=== PATIENT | female | born 1980 | race Caucasian/White ===

== ENCOUNTER 2016-12-21 16:18 | Inpatient (IN) | payer MEDICAID ==
[~2016-12-21] VITALS: Ht 160 cm; Wt 86.4 kg
[2017-01-16] VITALS (66 sets, daily range): BP systolic 94–151; BP diastolic 54–106; PULSE 67–110; TEMP 98–98.6
[2017-01-16 06:40] LABS: BASO % 0.3 % (0.0-2.0); EOS # 0.1 (0.0-0.7); GRAN % 70.4 % (42.2-75.2); LYMPH # 1.3 (1.2-3.4); LYMPH % 22.6 % (20.0-51.0); MEAN CELL VOLUME 83 fl (80.0-100.0); MEAN CORPUSCULAR HGB CONC 32 g/dl (33.0-37.0); MEAN PLATELET VOLUME 10.2 fl (7.4-10.4); MONO # 0.3 (0.1-0.6); MONO % 5.2 % (1.7-9.3); PLATELET COUNT 222 K/mm3 (130-400); RED BLOOD COUNT 3.55 M/mm3 (4.10-5.30); REDCELL DISTRIBUTION WIDTH-CV 14.4 % (11.5-14.5); WHITE BLOOD COUNT 5.7 K/mm3 (4.8-10.8)
[2017-01-16 06:43] LABS: HEMATOCRIT 29.5 % (37.0-47.0); HEMOGLOBIN 9.5 g/dl (12.5-16.0); MEAN CORPUSCULAR HEMOGLOBIN 27 pg (27.0-31.0)
[2017-01-16] MEDS ORDERED: PERCOCET 325 MG1 TA2 PO (07:35)
[2017-01-16] MEDS ORDERED: MOTRIN 800800 MG/TAB PO (07:35)
[2017-01-17] VITALS (7 sets, daily range): BP systolic 119–128; BP diastolic 65–76; PULSE 81–103; TEMP 98.1–98.7
[2017-01-18 07:00] VITALS: BP 131/87; PULSE 89; TEMP 98.1
== END 2017-01-18 12:45 | disposition home or self-care (01) | DRG 775 ==
LOC: OB 01-16 05:29 → LDR 01-16 16:00 → OB 01-17 01:30 → EDSTATUS 02-04 06:52 → LDRO 02-04 16:17
PROVIDERS: Obstetrics & Gynecology
PROC: 10E0XZZ Delivery of Products of Conception, External Approach (ICD-10-PCS; principal; 2017-01-16)
PROC: 0HQ9XZZ Repair Perineum Skin, External Approach (ICD-10-PCS; 2017-01-16)
DX: O41.03X0 Oligohydramnios, third trimester, not applicable or unspecified (principal); O76 Abnormality in fetal heart rate and rhythm complicating labor and delivery; O32.0XX0 Maternal care for unstable lie, not applicable or unspecified; O34.13 Maternal care for benign tumor of corpus uteri, third trimester; D25.9 Leiomyoma of uterus, unspecified; O70.0 First degree perineal laceration during delivery; Z3A.37 37 weeks gestation of pregnancy; Z37.0 Single live birth
CPT/HCPCS: J0690; J2590; J7120

== ENCOUNTER 2018-01-05 09:25 | Emergency (ER) | payer MEDICAID ==
[~2018-01-05] VITALS: Ht 160 cm; Wt 70.5 kg
[~2018-01-05 09:25] MED LIST: MOTRIN 800800 MG/TAB PO; PERCOCET 325 MG1 TA2 PO
[2018-01-05 09:28] VITALS: BP 138/93; PULSE 89; TEMP 98
== END 2018-01-05 11:16 | disposition home or self-care (01) ==
LOC: COL.ER 09:25
DX: S63.502A Unspecified sprain of left wrist, initial encounter (principal); W19.XXXA Unspecified fall, initial encounter

== ENCOUNTER → 2021-03-03 | Outpatient (CLI) | payer BC | LOC: MC.RAD 09:18 | DX: Z12.31 Encounter for screening mammogram for malignant neoplasm of breast (principal) ==